=== PATIENT | female | born 1965 | race Caucasian/White ===

== ENCOUNTER 2018-08-28 07:48 | Inpatient (IN) | payer BC ==
[~2018-08-28] VITALS: Ht 170.2 cm; Wt 71.2 kg
[2018-08-28] MEDS ORDERED: ALVIMOPAN 12 MG CAPSULE PO ONE ×2 (08:15→08:23)
[2018-08-28] MEDS ORDERED: cefOXitin SODIUM 2 GM in D5W 100 ML IV ONE (08:15)
[2018-08-28] MEDS ORDERED: SYN50 PO (10:24)
[2018-08-28] MEDS ORDERED: IMI50 PO (10:24)
[2018-08-28] MEDS ORDERED: METO-542 (10:24)
[2018-08-28] MEDS ORDERED: LR 1,000 ML IV SCH (10:25)
[2018-08-28] MEDS ORDERED: METOCLOPRAMIDE HCL 10 MG/2 ML VIAL IVP PRN (10:30)
[2018-08-28] MEDS ORDERED: HYDROmorphone 1 MG INJ. 1 MG/ML AMPUL IVP PRN ×2 (10:30)
[2018-08-28] MEDS ORDERED: HYDROmorphone 2 MG/ML VIAL IVP PRN (10:30)
[2018-08-28] MEDS ORDERED: ONDANSETRON HCL 4 MG/2 ML VIAL ONE (11:15)
[2018-08-28] MEDS ORDERED: MIDAZOLAM HCL 5 MG/ML VIAL (VERSED) IV ONE (11:15)
[2018-08-28] MEDS ORDERED: PROPOFOL 200MG/ 20ML VIAL (DIPRIVAN) IV ONE (11:15)
[2018-08-28] MEDS ORDERED: ACETAMINOPHEN 325 MG TABLET PO PRN (11:15)
[2018-08-28] MEDS ORDERED: GLYCOPYRROLATE 0.2 MG/ML VIAL ONE (11:15)
[2018-08-28] MEDS ORDERED: LR 1,000 ML IV.SOLN IV ONE (11:15)
[2018-08-28] MEDS ORDERED: ROCURONIUM BROMIDE 10 MG/ML (ZEMURON) ONE (11:15)
[2018-08-28] MEDS ORDERED: fentaNYL CITRATE 250 MCG/5 ML AMP ONE (11:15)
[2018-08-28] MEDS ORDERED: NEOSTIGMINE METHYLSULFATE 1 MG/ML, 10 ML VIAL ONE (11:15)
[2018-08-28] MEDS ORDERED: ONDANSETRON HCL 4 MG/2 ML VIAL IVP PRN (11:15)
[2018-08-28] MEDS ORDERED: cefOXitin SODIUM 2 GM/VIAL (MEFOXIN) ONE (11:15)
[2018-08-28] MEDS ORDERED: D5W 100 ML IV.SOLN IV ONE (11:15)
[2018-08-28] MEDS ORDERED: NS 1000 ML IV.SOLN IV ONE (11:15)
[2018-08-28] MEDS ORDERED: BUPIVACAINE LIPOSOME/PF 266 MG/20 ML VIAL INFIL ONE (11:15)
[2018-08-28] MEDS ORDERED: NS IRRIG SOLN 1000 ML IR ONE (11:15)
[2018-08-28] MEDS ORDERED: SEVOFLURANE 15 MIN GAS INH ONE (11:15)
[2018-08-28] MEDS ORDERED: HYDROmorphone 1 MG INJ. 1 MG/ML AMPUL ONE (11:33)
[2018-08-28 12:23] LABS: CALCIUM 8.8 mg/dL (8.4-11.0); CREATININE 0.91 mg/dL (0.55-1.30); POTASSIUM 3.6 mmol/L (3.5-5.1)
[2018-08-28 12:29] LABS: HEMATOCRIT 41.1 % (36-48); HEMOGLOBIN 13.8 g/dL (12.0-16.0)
[2018-08-28] MEDS ORDERED: HYDROmorphone 2 MG/ML VIAL ONE (12:48)
[2018-08-28 13:02] VITALS: BP_SYST 152
[2018-08-28] MEDS: HYDROmorphone 1 MG INJ. 1 MG/ML AMPUL IVP PRN (13:30)
[2018-08-28] MEDS: D5/0.45 NS 1,000 ML IV SCH ×2 (14:24→20:33)
[2018-08-28] MEDS: HYDROcodone/ACETAMIN 5-325 MG TAB (NORCO/ VICODIN) PO PRN ×2 (16:34→20:24)
[2018-08-28 17:26] VITALS: BP_SYST 160
[2018-08-28 20:00] VITALS: BP_SYST 151
[2018-08-28] MEDS: FAMOTIDINE PF 20 MG/2 ML VIAL IVP SCH (20:23)
[2018-08-28] MEDS: ALVIMOPAN 12 MG CAPSULE PO SCH (20:23)
[2018-08-28] MEDS: cefOXitin SODIUM 2 GM in D5W 100 ML IV SCH (20:24)
[2018-08-28 21:30] VITALS: BP_SYST 148
[2018-08-29] VITALS (7 sets, daily range): BP systolic 133–153
[2018-08-29] MEDS: HYDROcodone/ACETAMIN 5-325 MG TAB (NORCO/ VICODIN) PO PRN ×3 (00:29→20:01)
[2018-08-29] MEDS: D5/0.45 NS 1,000 ML IV SCH ×2 (07:02→19:13)
[2018-08-29 07:10] LABS: BASOPHILS % (AUTO) 0.1 % (0.0-2.0); HEMATOCRIT 39.6 % (36-48); HEMOGLOBIN 13.2 g/dL (12.0-16.0); LYMPHOCYTES # (AUTO) 1.4 K/uL (1.0-5.5); MEAN CORPUSCULAR HEMOGLOBIN 30 pg (27-31); MEAN CORPUSCULAR HGB CONC 33 % (32-36); MEAN CORPUSCULAR VOLUME 91 fL (79.0-98.0); MONOCYTES # (AUTO) 0.9 K/uL (0.0-1.0); MONOCYTES % (AUTO) 8.7 % (1.7-9.3); NEUTROPHILS # (AUTO) 7.7 K/uL (1.8-7.7); NEUTROPHILS % (AUTO) 77.2 % (40.0-70.0); PLATELET COUNT (AUTO) 247 K/uL (130-430); RED BLOOD CELL COUNT(AUTO) 4.35 MIL/uL (4.2-6.2); RED CELL DISTRIBUTION WIDTH 12.9 % (9.0-15.0)
[2018-08-29 07:33] LABS: CREATININE 0.72 mg/dL (0.55-1.30); POTASSIUM 4.2 mmol/L (3.5-5.1); TOTAL BILIRUBIN 0.5 mg/dL (0.0-1.0)
[2018-08-29] MEDS: cefOXitin SODIUM 2 GM in D5W 100 ML IV SCH (09:12)
[2018-08-29] MEDS: ALVIMOPAN 12 MG CAPSULE PO SCH ×2 (09:12→20:02)
[2018-08-29] MEDS: ENOXAPARIN SODIUM 30 MG/0.3 ML SYRINGE SUBCUT SCH (09:16)
[2018-08-29] MEDS: FAMOTIDINE PF 20 MG/2 ML VIAL IVP SCH ×2 (09:17→19:53)
[2018-08-29] MEDS: HYDROmorphone 1 MG INJ. 1 MG/ML AMPUL IVP PRN (10:29)
[2018-08-29] MEDS: METOCLOPRAMIDE HCL 10 MG/2 ML VIAL IVP SCH ×2 (12:30→19:13)
[2018-08-29] MEDS ORDERED: LEVOTHYROXINE SODIUM 0.05 MG TABLET PO ONE (16:00)
[2018-08-29] MEDS ORDERED: METOPROLOL SUCCINATE 50 MG TAB.SR.24H (TOPROL XL) PO ONE (16:00)
[2018-08-30] MEDS: METOCLOPRAMIDE HCL 10 MG/2 ML VIAL IVP SCH ×2 (00:11→06:17)
[2018-08-30] MEDS: HYDROcodone/ACETAMIN 5-325 MG TAB (NORCO/ VICODIN) PO PRN ×2 (00:11→10:25)
[2018-08-30] MEDS: D5/0.45 NS 1,000 ML IV SCH (05:33)
[2018-08-30] MEDS ORDERED: LEVOTHYROXINE SODIUM 0.05 MG TABLET PO SCH (07:00)
[2018-08-30 08:24] VITALS: BP_SYST 156
[2018-08-30] MEDS ORDERED: METOPROLOL SUCCINATE 50 MG TAB.SR.24H (TOPROL XL) PO SCH (09:00)
[2018-08-30] MEDS: FAMOTIDINE PF 20 MG/2 ML VIAL IVP SCH (10:14)
[2018-08-30] MEDS: ENOXAPARIN SODIUM 30 MG/0.3 ML SYRINGE SUBCUT SCH (10:20)
[2018-08-30] MEDS: ALVIMOPAN 12 MG CAPSULE PO SCH (10:25)
[2018-08-30 11:23] VITALS: BP_SYST 147
[2018-08-30 15:07] VITALS: BP_SYST 150
== END 2018-08-30 15:30 | disposition home or self-care (01) | DRG 331 ==
LOC: SMU 07:48 → EDSTATUS 09:30
PROVIDERS: ADMIT Colon & Rectal Surgery; ATTEND Colon & Rectal Surgery
PROC: 0DTF0ZZ Resection of Right Large Intestine, Open Approach (ICD-10-PCS; principal; 2018-08-28 09:30)
DX: D37.4 Neoplasm of uncertain behavior of colon (principal); I10 Essential (primary) hypertension; E03.9 Hypothyroidism, unspecified; K63.5 Polyp of colon; J45.20 Mild intermittent asthma, uncomplicated; Z90.710 Acquired absence of both cervix and uterus; Z98.891 History of uterine scar from previous surgery; Z80.3 Family history of malignant neoplasm of breast; Z82.49 Family history of ischemic heart disease and other diseases of the circulatory system; Z80.42 Family history of malignant neoplasm of prostate; Z80.0 Family history of malignant neoplasm of digestive organs
CPT/HCPCS: 36415; 80048; 80053; 85018-TC; 85025; 87081; 88307; 97116-GP; 97530-GP; C1727; C9290; J0694; J1170; J1650; J2250; J2405; J2704; J2710; J2765; J3010; J3490; J7030; J7060; J7120